=== PATIENT | male | born 1940 | race Caucasian/White ===

== ENCOUNTER 2021-08-08 19:59 | Emergency (ER) | payer MEDICARE, SELFPAY ==
--- NOTE | ~2021-08-08 | CT_ITS ---
EXAMINATION: CT facial & cervical spine wo DATE: 08/08/2021 20:42 INDICATION: Head injury TECHNIQUE: Computed tomography (CT) of the maxillofacial region and cervical spine was performed with out intravenous contrast. The dose-length product (DLP) was 310.24 mGy-cm. Automated exposure control and iterative reconstruction technique were employed. COMPARISON: 04/29/2018 FINDINGS: MAXILLOFACIAL CT: No facial fracture is identified. The globes and orbits are intact. Changes in the globes are likely from ocular lens surgery. There is a right temporal scalp laceration. 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 CERVICAL SPINE CT: There is no fracture. There are 2 mm of chronic anterolisthesis of C4 on C5 and C5 on C6. There is un changed severe loss of intervertebral disc space height at C5-6 and mild loss of disc space height th roughout the remainder of the cervical spine. The odontoid is intact. The vertebral body heights are maintained. Prevertebral soft tissues are normal. Small degenerative osteophytes project from the ant erior endplates of multiple vertebral bodies. 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 IMPRESSION: 1. Right temporal scalp laceration without facial bone fracture. 2. Severe cervical spondylosis without acute findings or significant interval change. Reviewed, dictated and finalized at location [facility] IMPRESSION: 1. Right temporal scalp laceration without facial bone fracture. 2. Severe cervical spondylosis without acute findings or significant interval unique moya
--- NOTE | ~2021-08-08 | CT_ITS ---
EXAMINATION: CT brain wo con INDICATION: Head injury COMPARISON: 04/29/2018 TECHNIQUE: Standard unenhanced head CT. The dose-length product (DLP) was 756.67 mGy-cm. The mA was a djusted according to patient size. Iterative reconstruction technique was employed. FINDINGS: There is a right temporal scalp soft tissue laceration. There is no acute intraparenchymal hemorrhage. No evidence of mass lesion. No evidence of acute infarction. There is mild periventricula r and subcortical hypodensity probably related to small vessel ischemic disease. There is mild promin ence of the sulci and ventricles related to cerebral atrophy. Intracranial calcified cerebral atheros clerosis is noted. There are no extra-axial collections. There is no mass effect or midline shift. Ch anges in the globes are likely from ocular lens surgery. There is mild mucosal thickening of the para nasal sinuses. IMPRESSION: 1. Right temporal scalp soft tissue laceration without acute intracranial abnormality. 2. Age related findings. Reviewed, dictated and finalized at location [facility] IMPRESSION: 1. Right temporal scalp soft tissue laceration without acute intracranial abnor mality. 2. Age related findings.
[2021-08-08 20:22] VITALS: BP 178/82; PULSE 73; RESP 16; TEMP 36.7; O2SAT 100
[2021-08-08] MEDS: LIDOCAINE HCL 2% PF INJ 5 ML VIAL (20:54)
[2021-08-08 21:05] LABS: Basophils Absolute Auto 0.03 K/mm3 (0.00-0.10); Basophils Percent Auto 0.5 % (0.0-1.0); Eosinophils Absolute Auto 0.04 K/mm3 (0.02-0.50); Eosinophils Percent Auto 0.7 % (1.0-6.0); Hematocrit 35.9 % (37.0-46.0); Hemoglobin 11.1 g/dL (12.4-15.3); Immature Granulocyte Absolute 0.02 K/mm3 (0.00-0.00); Immature Granulocyte Percent A 0.3 % (0.0-0.0); Lymphocytes Absolute Auto 0.55 K/mm3 (1.10-4.50); Lymphocytes Percent Auto 9.5 % (18.0-42.0); Mean Corpuscular HGB Conc 30.9 g/dL (32.0-36.0); Mean Corpuscular Hemoglobin 27.5 pg (27.0-31.0); Mean Corpuscular Volume 88.9 fL (78.0-102.0); Mean Platelet Volume 10.2 fl (8.7-11.0); Monocytes Absolute Auto 0.45 K/mm3 (0.10-0.90); Monocytes Percent Auto 7.8 % (2.0-11.0); Neutrophils Absolute Auto 4.7 K/mm3 (1.7-7.2); Neutrophils Percent Auto 81.2 % (50.0-70.0); Platelet Count Result 196 K/mm3 (150-420); Red Blood Count 4.04 M/mm3 (4.70-6.10); Red Cell Distribution Width 17.3 % (11.6-14.4); White Blood Count 5.8 K/mm3 (4.8-10.8)
--- NOTE | 2021-08-08 21:18 | ED.FALL ---
HPI - Fall General Chief Complaint: Fall Stated Complaint: AMB Time Seen by Provider: 08/08/21 20:01 Source: patient, EMS and RN notes reviewed Mode of arrival: EMS Limitations: no limitations History of Present Illness complaint: fall Onset (ago): hour(s) (1) Fall from: wheelchair Fall witnessed: yes, by family Place fall occurred: street Loss of consciousness: none Prolonged down time: no Symptoms prior to fall: none Context: tripped/slipped Location of injury: head Severity: mild Severity scale (1-10): 2 Quality: dull and aching Associated symptoms (after fall): headache Related Data Allergies Allergy/AdvReac Type Severity Reaction Status Date / Time Sulfa (Sulfonamide Allergy Hives Verified 08/08/21 20:50 Antibiotics) Review of Systems Review of Systems: All systems reviewed & are unremarkable except as noted in HPI and below Neurologic: Reports headache(s) PMFSH Past Medical History Medical History (Updated 08/24/21 @ 04:00 by Vladimir Kwon MD) Forehead laceration Head injury Exam Const: General: no acute distress and alert Nutritional Appearance: thin Orientation/consciousness: patient oriented x3 Limitations: no limitations Other: 2 cm right forehead laceration HENMT: Head: normal to inspection Ears: external ears normal and TM's normal bilaterally General nose exam: Normal external nose present and Normal nares present Face and sinus: normal facial exam Mouth: Yes moist mucous membranes Eyes: Conjunctivae: conjunctivae normal Pupils: Equal, round and reactive pupils present EOM: EOMs intact bilaterally Neck: Neck: normal visual inspection and no lymphadenopathy Chest: Chest palpation & inspection: normal inspection of the chest Resp: Effort & Inspection: normal respiratory effort Auscultation: clear to auscultation bilaterally Cardio: Rate: regular rate Rhythm: regular rhythm GI: GI Palp: Yes Soft to palpation and No Tenderness to palpation present (GI) : General: Yes bladder normal to palpation and Yes no CVA tenderness Male General Exam: Yes normal external exam Testes: Testes normal Back/Spine/Pelvis: Back: no CVA tenderness Skin: General skin exam: normal color Rashes: no rashes Neuro: General: patient oriented x3, moves all extremities, no meningeal signs, no focal motor deficits and CN's II-XI intact bilaterally Speech: normal speech Extrem: General: normal to inspection and no pedal edema Psych: Appearance: grossly normal and well kempt Mental Status: mental status grossly normal Affect: normal affect Attitude: cooperative Thought content: Yes Normal thought content present Course Course Emergency Course: PT WAS stable in the ED with repaired forehead laceration Reevaluation(s) Reevaluation #1: VSS Date: 08/08/21 Time: 20:59 Vital Signs Vital signs: Vital Signs Temperature 36.7 C 08/08/21 20:22 Pulse Rate 73 08/08/21 20:22 Respiratory Rate 16 08/08/21 20:22 Blood Pressure 178/82 H 08/08/21 20:22 Pulse Oximetry 100 08/08/21 20:22 Temperature 36.7 C 08/08/21 20:22 Pulse Rate 74 08/08/21 22:47 Respiratory Rate 16 08/08/21 22:47 Blood Pressure 122/94 H 08/08/21 22:47 Pulse Oximetry 100 08/08/21 22:47 Procedures Laceration 2 cm right forehead laceration: Date: 08/08/21 Time: 20:45 Site: other (right forehead) Side (If applicable): right Size (cm): 2.0 Description: linear Depth: simple, single layer Local Anesthetic: lidocaine 2% Amount of anesthesia used (mL): 1 Pre-repair: wound explored, irrigated and irrigated extensively ====== Skin Level ====== Skin layer closed with: yarely Number of sutures: 4 Technique: simple, interrupted ====== Subcutaneous Layer ====== ====== Muscle Layer ====== ====== Tendon Layer ====== Dressing: WELL TOLERATED. cOMPRESSION dressing MDM - Fall Differe
[2021-08-08 21:20] LABS: INR 1.3; Partial Thromboplastin Time 34.9 SEC (23.90-30.70); Prothrombin Time 13.5 Seconds (9.50-12.10)
[2021-08-08 21:21] LABS: Alanine Aminotransferase 14 U/L (16-63); Albumin Level 3.4 g/dL (3.4-5.0); Alkaline Phosphatase 62 U/L (46-116); Anion Gap 8 mmol/L (8-16); Aspartate Amino Transferase 18 U/L (15-37); Bilirubin,Total 0.7 mg/dL (0.00-1.00); Blood Urea Nitrogen 25 mg/dL (7-18); Carbon Dioxide 34 mmol/L (21-32); Chloride 96 mmol/L (98-108); Estimated CRCL calculation 29 ml/min; Estimated Glomerular Filt Rate 50; Glucose 121 mg/dL (70-99); Osmolality Calculated 291 mOsm/kg (285-295); Sodium 138 mmol/L (136-145); Total Protein 6.7 g/dL (6.4-8.2)
[2021-08-08 21:24] LABS: Troponin I 8.3 ng/L (0.00-60.4)
[2021-08-08 21:30] VITALS: BP 78/64; PULSE 88; RESP 18; O2SAT 100
[2021-08-08 21:31] LABS: SARS-CoV-2 Ag Negative (Negative)
[2021-08-08] MEDS: LIDOCAINE HCL 2% PF INJ 5 ML VIAL 3 ML INFILTRATE (21:31)
[2021-08-08] MEDS: ACETAMINOPHEN 325 MG TABLET 650 MG PO (21:31)
--- NOTE | 2021-08-08 21:43 | PC.NURSE ---
Patient resting comfortably in room after staple application. Patient alert and oriented x 2-3. given blanket and call light. lights dimmed for comfort. updated Chang, family on plan of care.
[2021-08-08 22:47] VITALS: BP 122/94; PULSE 74; RESP 16; O2SAT 100
== END 2021-08-08 22:51 | disposition home or self-care (01) ==
PROVIDERS: Emergency Provider Emergency Medicine
DX: S09.90XA Unspecified injury of head, initial encounter (principal); S01.81XA Laceration without foreign body of other part of head, initial encounter; W01.0XXA Fall on same level from slipping, tripping and stumbling without subsequent striking against object, initial encounter; Z20.822 Contact with and (suspected) exposure to COVID-19
CPT/HCPCS: 36415; 70450; 70486; 72125; 80053; 84484; 85025; 85610; 85730; 87426; 99283; 99284; A9270; C9803